=== PATIENT | male | born 1995 | race Caucasian/White ===

== ENCOUNTER 2024-11-16 20:55 | Emergency (ER) | payer MEDICARE ==
[~2024-11-16] VITALS: Ht 193 cm; Wt 65.8 kg
[2024-11-16] MEDS ORDERED: ONDANSETRON HCL/PF 4 MG/2 ML VIAL ONE (22:21)
[2024-11-16] MEDS: IV NS 0.9% 1,000 ML BAG IV ONE (22:30)
[2024-11-16] MEDS: ONDANSETRON HCL/PF 4 MG/2 ML VIAL IVP ONE (22:36)
[2024-11-16 23:09] LABS: PLATELET COUNT (AUTO) 324 K/uL (150-450); RED BLOOD CELL COUNT(AUTO) 4.18 MIL/uL (4.5-6.0); RED CELL DISTRIBUTION WIDTH 14.8 % (11.5-15.0); WHITE BLOOD COUNT (AUTO) 9.5 K/uL (4.3-11.0)
[2024-11-16 23:19] LABS: CALCIUM, SERUM 9.4 mg/dL (8.5-10.1); CREATININE 0.8 mg/dL (0.6-1.3); SODIUM SERUM 139.0 mmol/L (136-145); UREA NITROGEN, BLOOD 17.0 mg/dL (7-18)
[2024-11-16 23:25] LABS: ASPARTATE AMINOTRANSFERASE 53.0 U/L (15-37); TOTAL PROTEIN, SERUM 7.6 g/dL (6.4-8.2)
[2024-11-17 00:12] LABS: APPEARANCE,URINE CLEAR (CLEAR); BLOOD, URINE NEGATIVE Ery/uL (NEGATIVE); LEUKOCYTE ESTERASE ,URINE TRACE (NEGATIVE); NITRITE, URINE NEGATIVE (NEGATIVE); UGLUCOSE NEGATIVE (NEGATIVE)
[2024-11-17] MEDS ORDERED: ONDA4TAB5 PO (00:23)
[2024-11-17 00:32] LABS: ADD URINE CULTURE NO; FINE GRANULAR CASTS,URINE Rare /LPF (None Seen); SQUAMOUS EPITHELIAL CELL,UR Rare /HPF (None Seen)
[2024-11-17 01:44] VITALS: BP 124/81; O2SAT 99
== END 2024-11-17 01:45 | disposition home or self-care (01) ==
LOC: ER 21:07
DX: R10.84 Generalized abdominal pain (principal); R11.0 Nausea; Z85.6 Personal history of leukemia; Z94.81 Bone marrow transplant status; Z88.8 Allergy status to other drugs, medicaments and biological substances
CPT/HCPCS: 99284; 96360; 76705; 85025; 80048; 83690; 80076; 81001; 36415; J7030; J2405